=== PATIENT | female | born 1960 | race Caucasian/White ===

== ENCOUNTER 2019-09-24 13:06 | Outpatient (CLI) | payer BC, SELFPAY ==
[2019-09-24 13:38] LABS: Hematocrit 43.1 % (37.0-47.0); Hemoglobin 14.9 g/dL (12.0-15.0); Mean Corpuscular HGB Conc 34.6 g/dl (32-36); Mean Corpuscular Hemoglobin 31.6 pg (26-34); Mean Corpuscular Volume 91.3 fl (80-100); Mean Platelet Volume 10.2 fl (7.4-10.4); Platelet Count Result 244 k/mm3 (150-375); Red Blood Count 4.72 M/mm3 (4.2-5.4); Red Cell Distribution Width 12.6 % (11.5-14.5); White Blood Count 6.3 K/mm3 (4.5-10.0)
[2019-09-24 14:04] LABS: Alanine Aminotransferase 19 U/L (4-35); Albumin Level 4.6 g/dL (3.5-5.1); Alkaline Phosphatase 137 U/L (38-126); Amylase 78 U/L (30-110); Aspartate Amino Transferase 27 U/L (14-36); Bilirubin,Total 0.8 mg/dL (0.2-1.3); Blood Urea Nitrogen 13 mg/dL (7-17); Calcium 9.4 mg/dL (8.4-10.2); Carbon Dioxide 32 mmol/L (22-30); Chloride 103 mmol/L (98-107); Estimated Glomerular Filt Rate > 60; Glucose 99 mg/dL (65-105); Lipase 103 U/L (23-300); Sodium 138 mmol/L (137-145)
[2019-09-24 14:40] LABS: Hepatitis B Surface Antigen Negative (Negative)
[2019-09-24 14:57] LABS: Hepatitis C Virus Antibody Negative (Negative)
[2019-09-24 15:03] LABS: HAV RESULT Negative (Negative); Hepatitis B Core IgM Result Negative (Negative)
== END 2019-09-24 13:07 | disposition home or self-care (01) ==
PROVIDERS: PCP Family Medicine; Visit Provider Nurse Practitioner Family
DX: R10.10 Upper abdominal pain, unspecified (principal); R19.8 Other specified symptoms and signs involving the digestive system and abdomen; R14.0 Abdominal distension (gaseous)
CPT/HCPCS: 36415; 80053; 80074; 82150; 83690; 85027

== ENCOUNTER 2019-09-26 15:28 | Outpatient (CLI) | payer BC, SELFPAY ==
--- NOTE | ~2019-09-26 | US_ITS ---
US abdomen complete EXAMINATION: US Abdomen Complete INDICATION: Generalized abdominal pain PROCEDURE: Realtime High Resolution abdomen ultrasound. COMPARISON: No prior studies for comparison FINDINGS: Gallbladder within normal limits. No gallstones, pericholecystic fluid, gallbladder wall t hickening or biliary dilatation. Common bile duct measures 4.8 mm. Liver echotexture within normal limits without focal mass. Pancreas within normal limits. Pancreati c tail is obscured by bowel gas. Spleen is unremarkeable. Renal echotexture is within normal limits bilaterally without hydronephrosis, contour deforming mass or renal stone. Right kidney measures 9 cm . Left kidney measures 11.2 cm. Visualized aspects of the aorta and IVC are within normal limits. Portal vein is patent. No sonograph ic Rahman's sign indicated by the technologist. IMPRESSION: 1: Normal abdominal ultrasound. Reviewed, dictated and finalized at location A.
== END 2019-09-26 15:29 | disposition home or self-care (01) ==
LOC: ANHIMG 15:28
PROVIDERS: PCP Family Medicine; Visit Provider Nurse Practitioner Family
DX: R14.0 Abdominal distension (gaseous) (principal); R19.8 Other specified symptoms and signs involving the digestive system and abdomen
CPT/HCPCS: 76700

== ENCOUNTER 2019-10-18 10:51 | Outpatient (CLI) | payer BC, MEDICAID, SELFPAY ==
--- NOTE | ~2019-10-18 | CT_ITS ---
EXAMINATION: CT abdomen pelvis w con INDICATION: Mid abdominal pain and bloating TECHNIQUE: Computed tomographic images of the abdomen and pelvis were obtained after the administrati on of 100 cc of Omnipaque 350 intravenous contrast. The dose-length product (DLP) was 253.36 mGy-cm. Automated exposure control and iterative reconstruction technique were employed. COMPARISON: None available FINDINGS: The lung bases are clear. The heart size is normal. The liver is diffusely low in attenuati on when compared with the spleen, consistent with hepatic steatosis. The spleen, pancreas, gallbladde r, and adrenal glands are normal. There is a 1.4 cm lower pole calyceal stone of the right kidney. Th e left kidney is unremarkable. No pathologically enlarged abdominal or pelvic lymph nodes are identif ied. There is calcified atherosclerosis of the aorta and many of the other arteries. There is no free intraperitoneal gas or evidence of bowel obstruction. The appendix is normal. There is mild lumbar s pondylosis. IMPRESSION: 1. Nonobstructing right lower pole calyceal stone. 2. Diffuse hepatic steatosis. Reviewed, dictated and finalized at location A.
== END 2019-10-18 10:52 | disposition home or self-care (01) ==
LOC: ANHIMG 10:54
PROVIDERS: PCP Family Medicine; Visit Provider Nurse Practitioner Family
DX: R19.8 Other specified symptoms and signs involving the digestive system and abdomen (principal); N20.0 Calculus of kidney; K76.0 Fatty (change of) liver, not elsewhere classified
CPT/HCPCS: 74177; Q9967

== ENCOUNTER 2019-12-18 01:04 | Outpatient (CLI) | payer BC, MEDICAID, SELFPAY ==
[2019-12-18 19:19] LABS: SARS-CoV-2 RNA PCR Negative
== END 2019-12-18 01:05 | disposition home or self-care (01) ==
LOC: ANHCOVIDDT 01:04
PROVIDERS: PCP Family Medicine; Visit Provider Internal Medicine Gastroenterology
DX: Z01.812 Encounter for preprocedural laboratory examination (principal); Z11.59 Encounter for screening for other viral diseases
CPT/HCPCS: 87635; C9803; U0003

== ENCOUNTER 2019-12-20 01:23 | Day surgery (SDC) | payer BC, MEDICAID, SELFPAY ==
[2019-12-13 10:23] VITALS: BMI 23.4
--- NOTE | 2019-12-20 07:39 | WPDANESEPPF ---
Anes - Initial Pre Proc Eval Procedure: Operation Date: 12/20/19 09:00 Proposed Procedures p Esophagogastroduodenoscopy & Screening Colonoscopy - Nirmal Morillo MD Date/Time: 12/20/19 07:39 Surgeon: Nirmal Morillo MD Pre Op Diagnosis: Abdominal Pain/ Fam Hx Colon Ca Patient Data Age: 59 Gender: F Height: 1.6 m Weight: 60 kg Allergies Allergy/AdvReac Type Severity Reaction Status Date / Time codeine Allergy Unknown Nausea and Verified 12/13/19 10:45 Vomiting Home Medications Medication Instructions Recorded Confirmed Type cholecalciferol (vitamin D3) 25 25 mcg PO DAILY 11/25/19 12/13/19 History mcg (1,000 unit) tablet dicyclomine 10 mg capsule 10 mg PO BID #60 cap 11/25/19 12/13/19 Rx [id number]-Vt-kxfw-minerals 1 tablet PO DAILY 11/25/19 12/13/19 History albuterol sulfate 1 inh INHALATION QID PRN 12/13/19 12/13/19 History hydrocodone-acetaminophen [Vicodin 1 tablet PO BID PRN 12/13/19 12/13/19 History HP] Patient hx anesthesia problems: none Family hx anesthesia problems: none PMFSH Past Medical History Medical History (Updated 12/20/19 @ 07:40 by Brandon Wiseman MD) Abdominal pain Anemia Asthma Bloating Bronchitis COPD (chronic obstructive pulmonary disease) DM (diabetes mellitus) Early satiety Family history of colon cancer in mother Fatty liver History of angina Melena Pneumonia UTI (urinary tract infection) Surgical History Surgical History History of dilation and curettage x3 History of tonsillectomy and adenoidectomy Hx of tubal ligation Social History Social History Smoking packs per day: 1 Smoking cigarettes per day: 20.0 Smoking status: Current every day smoker Second hand tobacco smoke exposure: Yes Alcohol intake: never Gender identity (if verbalized by the patient): Female Anes - Eval Final PreProcedure Day of Procedure 12/20/19 07:39 Patient weight: normal Heart: regular rate and rhythm Lungs: clear to auscultation and normal air movement Airway: Mallampati scale class II Neurological: alert and oriented Last oral intake: >/= 8 hours ASA classification: III Emergent: no Anesthetic plan: proceed Anesthesia type and monitoring: general GIVS Informed Consent: The patient's anesthetic plan and its attendant risks and benefits were discussed with the patient/family/POA. Questions were solicited and answers provided to the satisfaction of the patient/family/POA.
[2019-12-20 08:17] VITALS: BP 129/65; PULSE 82; RESP 20; TEMP 36.4; O2SAT 100
[2019-12-20] MEDS: LACTATED RINGERS 1,000 ML 150 ML IV CONT (08:30)
--- NOTE | 2019-12-20 08:46 | WPDHPUPDATE1 ---
History and Physical Update Update Date/Time: 12/20/19 08:46 History and Physical has been reviewed, including an updated exam of the patient. There are NO changes in the patient's condition. Risks, benefits, and alternatives have been discussed and questions answered. Patient agrees to proceed with procedure.
[2019-12-20 09:22] VITALS: BP 92/53; PULSE 79; RESP 23; O2SAT 97
[2019-12-20 09:32] VITALS: BP 97/58; PULSE 75; RESP 22; O2SAT 97
[2019-12-20 09:42] VITALS: BP 118/70; PULSE 72; RESP 19; O2SAT 98
[2019-12-20 09:52] VITALS: BP 139/76; PULSE 73; RESP 17; O2SAT 100
== END 2019-12-20 10:19 | disposition home or self-care (01) ==
PROVIDERS: PCP Family Medicine; Visit Provider Internal Medicine Gastroenterology
PROC: 0DJ08ZZ Inspection of Upper Intestinal Tract, Via Natural or Artificial Opening Endoscopic (ICD-10-PCS; CPT 43235; principal; 2019-12-20 09:00)
DX: Z12.11 Encounter for screening for malignant neoplasm of colon (principal); D12.5 Benign neoplasm of sigmoid colon; K63.5 Polyp of colon; K64.8 Other hemorrhoids; K64.4 Residual hemorrhoidal skin tags; K25.9 Gastric ulcer, unspecified as acute or chronic, without hemorrhage or perforation; K29.80 Duodenitis without bleeding; K29.70 Gastritis, unspecified, without bleeding; B96.81 Helicobacter pylori [H. pylori] as the cause of diseases classified elsewhere; E11.9 Type 2 diabetes mellitus without complications; J44.9 Chronic obstructive pulmonary disease, unspecified; K76.0 Fatty (change of) liver, not elsewhere classified; Z80.0 Family history of malignant neoplasm of digestive organs; F17.210 Nicotine dependence, cigarettes, uncomplicated
CPT/HCPCS: 45385; 43239; 87081; 88305; 88342; J2704; J7120

== ENCOUNTER 2020-12-07 09:43 | Emergency (ER) | payer BC, MEDICAID, SELFPAY ==
--- NOTE | ~2020-12-07 | XR_ITS ---
EXAMINATION: XR chest 2V DATE: 12/07/2020 10:29 INDICATION: Right-sided rib pain TECHNIQUE: Frontal and lateral views of the chest are obtained COMPARISON: 07/26/2017 FINDINGS: The lungs are free of acute opacities. A calcified nodule of the right upper lobe is consis tent with old granulomatous disease. There is no pleural effusion or pneumothorax. The cardiomediasti nal silhouette is normal. There is moderate thoracic spondylosis. IMPRESSION: 1. No acute cardiopulmonary abnormality. Reviewed, dictated and finalized at location B.
[2020-12-07 09:54] VITALS: BP 131/63; PULSE 72; RESP 18; TEMP 36.3; O2SAT 100
--- NOTE | 2020-12-07 10:16 | ED.GENADULT ---
HPI - General Adult General Chief complaint: Unspecified Stated complaint: Rib Pain Source: patient and RN notes reviewed Limitations: no limitations History of Present Illness HPI narrative: The patient, is a current smoker/nondrinker, presents with rib pain. Patient states couple days ago she had the atraumatic onset of point tender, right rib pain while reaching over and lifting awkward, heavy object. She complains of mild pain is worse with motion or deep breathing. No fever, cough, shortness of breath, radiating pain, precordial CP Related Data Allergies Allergy/AdvReac Type Severity Reaction Status Date / Time codeine Allergy Unknown Nausea and Verified 12/07/20 10:05 Vomiting Review of Systems Review of Systems: Narrative: General/Constitutional: No weight loss,fever Eyes: N0: Redness,discharge Ears/Nose/Throat: No: Epistaxis,ear discharge Respiratory: Denies: Hemoptysis Gastrointestinal: No Vomiting, Bleeding-rectal Skin: No Lumps, eruption Neurologic: No Focal Weakness,Sz Hematologic: Denies: Petechiae/Purpura Psychiatric: No: Suicida ideationl All Other Systems: Reviewed and Negative Eyes: Eyes: Reports as per [facility] Past Medical History Medical History (Updated 12/07/20 @ 11:00 by Sean Herrera MD) Abdominal pain Adenomatous colon polyp Anemia Asthma Bloating Bronchitis COPD (chronic obstructive pulmonary disease) DM (diabetes mellitus) Early satiety Family history of colon cancer in mother Fatty liver Helicobacter pylori (H. pylori) History of angina Irritable bowel syndrome with constipation Melena Pneumonia Tobacco abuse UTI (urinary tract infection) Surgical History Surgical History History of dilation and curettage x3 History of tonsillectomy and adenoidectomy Hx of tubal ligation Family History Family History Mother Hypertension Carcinoma of colon Sibling Family history of lung cancer Social History Social History Smoking packs per day: 1 Smoking cigarettes per day: 20.0 Smoking status: Current some day smoker Second hand tobacco smoke exposure: Yes Alcohol intake: never Gender identity (if verbalized by the patient): Female Comments At time of signature, agree with nursing past medical, surgical, social and family history. There is no relevant family history pertinent to the presenting complaint Exam Narrative: Exam Narrative: General Appearance: No distress,, Conjunctiva clear Ears: External ear normal Nose: Normal nose Mouth/Throat: Normal appearing, Normal lips,: Supple Respiratory: Airway patent, No respiratory distress, increased AP diameter, point tender right ribs anterior axillary line T5-7, mild diffuse decreased BS Cardiovascular: RRR Musculoskeletal: Full ROM Skin: Warm, Dry Neurological: A&O x3, CN II-X intact Psychiatric: Normal mood, Normal affect Course Course Emergency Course: Films visualized, interpreted by radiologist, agree, normal see report Vital Signs Vital signs: Vital Signs Temperature 97.3 F L 12/07/20 09:54 Pulse Rate 72 12/07/20 09:54 Respiratory Rate 18 12/07/20 09:54 Blood Pressure 131/63 12/07/20 09:54 Pulse Oximetry 100 12/07/20 09:54 Temperature 97.3 F L 12/07/20 09:54 Pulse Rate 72 12/07/20 09:54 Respiratory Rate 18 12/07/20 09:54 Blood Pressure 131/63 12/07/20 09:54 Pulse Oximetry 100 12/07/20 09:54 Medical Decision Making Vital Signs Vital Signs: Vital Signs Temperature 97.3 F L 12/07/20 09:54 Pulse Rate 72 12/07/20 09:54 Respiratory Rate 18 12/07/20 09:54 Blood Pressure 131/63 12/07/20 09:54 Pulse Oximetry 100 12/07/20 09:54 Temperature 97.3 F L 12/07/20 09:54 Pulse Rate 72 12/07/20 09:54 Respiratory Rate 18 12/07/20 09:54 Blood P
== END 2020-12-07 11:05 | disposition home or self-care (01) ==
PROVIDERS: Emergency Provider Emergency Medicine; PCP Family Medicine
DX: R07.81 Pleurodynia (principal); F17.210 Nicotine dependence, cigarettes, uncomplicated; J45.909 Unspecified asthma, uncomplicated; J44.9 Chronic obstructive pulmonary disease, unspecified; E11.9 Type 2 diabetes mellitus without complications; K76.0 Fatty (change of) liver, not elsewhere classified; I20.9 Angina pectoris, unspecified
CPT/HCPCS: 71046; 99213; G0463

== ENCOUNTER → 2021-07-06 02:24 | Outpatient (CLI) | payer BC, MEDICAID, SELFPAY ==
[2021-07-06 16:44] LABS: SARS-CoV-2 RNA PCR Negative
== END ==
PROVIDERS: PCP Family Medicine; Visit Provider Physician Assistant Medical
DX: Z20.822 Contact with and (suspected) exposure to COVID-19 (principal)
CPT/HCPCS: C9803; U0003; U0005

== ENCOUNTER 2021-07-26 09:21 | Outpatient (CLI) | payer BC, MEDICAID, SELFPAY ==
--- NOTE | ~2021-07-26 | XR_ITS ---
EXAMINATION: XR knee LT 2V DATE: 07/26/2021 09:38 INDICATION: Left knee pain. Injury. TECHNIQUE: 2 views of left knee standing were obtained. COMPARISON: None. FINDINGS: Bone alignment is normal. No fracture. There is mild tricompartmental osteoarthritis charac terized by tiny osteophytes. No joint space narrowing. There is a small knee joint effusion. IMPRESSION: 1. Mild left knee osteoarthritis. 2. Small left knee joint effusion. Reviewed, dictated and finalized at location A. 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
--- NOTE | ~2021-07-26 | XR_ITS ---
EXAMINATION: XR chest 2V DATE: 07/26/2021 09:38 INDICATION: Cough, unspecified. TECHNIQUE: Frontal and lateral views of the chest were obtained. COMPARISON: Chest 2 views 12/07/2020 FINDINGS: There is mild scarring at right lung apex. A calcified right lung nodule is consistent with old granulomatous disease. No pleural effusion or pneumothorax. The heart size is normal. IMPRESSION: 1. Stable mild scarring at right lung apex. Reviewed, dictated and finalized at location A. 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
== END 2021-07-26 09:22 | disposition home or self-care (01) ==
PROVIDERS: PCP Family Medicine; Visit Provider Nurse Practitioner Family
DX: M25.562 Pain in left knee (principal); R05.9 Cough, unspecified; R91.8 Other nonspecific abnormal finding of lung field; M17.12 Unilateral primary osteoarthritis, left knee; M25.462 Effusion, left knee
CPT/HCPCS: 71046; 73560

== ENCOUNTER 2021-10-15 11:32 | Outpatient (CLI) | payer BC, MEDICAID, SELFPAY ==
--- NOTE | ~2021-10-15 | XR_ITS ---
EXAMINATION: XR abdomen/kub 1V DATE: 10/15/2021 11:55 INDICATION: Calculus of kidney. TECHNIQUE: A supine view of the abdomen on 2 radiographs was obtained. COMPARISON: CT dated 10/18/2019 FINDINGS: The previously seen 1.4 cm stone at a lower pole calyx of the right kidney is no longer visualized co nsistent with history of prior lithotripsy. Costochondral calcifications project over the diaphragm. No new urolithiasis appreciated. No dilated loops of bowel to suggest obstruction. Lung bases are sandee ar. Heart size is normal. Bones are unremarkable. IMPRESSION: 1. Normal bowel gas pattern. No urolithiasis. Reviewed, dictated and finalized at location B.
== END 2021-10-15 11:33 | disposition home or self-care (01) ==
LOC: ANHIMG 11:39
PROVIDERS: PCP Family Medicine; Visit Provider Nurse Practitioner Family
DX: N20.0 Calculus of kidney (principal)
CPT/HCPCS: 74018

== ENCOUNTER 2021-10-25 12:42 | Outpatient (CLI) | payer BC, OTHER, MEDICAID, SELFPAY ==
--- NOTE | ~2021-10-25 | CT_ITS ---
EXAMINATION: CT diagnostic chest wo con DATE: 10/25/2021 13:04 INDICATION: Tobacco use TECHNIQUE: Computed tomography (CT) of the chest was performed without intravenous contrast. Automate d exposure control and iterative reconstruction technique were employed. Exam dose: 65.46 mGy-cm tot al exam DLP. COMPARISON: 07/26/2021 PA and lateral chest 04/05/2019 CT thoracic lumbar spine FINDINGS: Stable fibrocalcific scarring right lung apex, stable since 04/05/2019 No pulmonary infiltrate or consolidation or pulmonary mass lesion. There is aortic and great vessel and coronary artery calcification. No thoracic aortic aneurysm. Norm al heart size. No pericardial effusion. No hilar or mediastinal mass lesion or lymphadenopathy. Normal morphology of the adrenal glands. There is chronic concavity of the superior vertebral endplate of T11, stable since 04/05/2019. IMPRESSION: Chronic stable right apical fibrocalcific scarring, stable since 04/05/2019 Chronic mild superior vertebral endplate compression fracture of T11, stable since 04/05/2019 Reviewed, dictated and finalized at Location A. Reviewed, dictated and finalized at location A. IMPRESSION: Chronic stable right apical fibrocalcific scarring, stable since 06/05/2018 Chronic mild superior vertebral endplate compression fracture of T11, stable si nce 04/05/2019
== END 2021-10-25 12:43 | disposition home or self-care (01) ==
PROVIDERS: PCP Family Medicine; Visit Provider Nurse Practitioner Family
DX: Z13.6 Encounter for screening for cardiovascular disorders (principal); I25.10 Atherosclerotic heart disease of native coronary artery without angina pectoris; M48.54XA Collapsed vertebra, not elsewhere classified, thoracic region, initial encounter for fracture; Z72.0 Tobacco use
CPT/HCPCS: 71250

== ENCOUNTER 2021-11-08 10:43 | Outpatient (CLI) | payer BC, MEDICAID, SELFPAY ==
--- NOTE | ~2021-11-08 | MM_ITS ---
EXAMINATION: MM screening mitchel BI w rupa HISTORY: Screening mammogram TECHNIQUE: Craniocaudal and mediolateral oblique 3-D tomosynthesis images were obtained and synthetic 2-D images were generated. CAD analysis was submitted and interpreted. COMPARISON: 09/26/2017, 09/07/2013 bilateral screening mammogram examinations BREAST PARENCHYMAL COMPOSITION: There are scattered areas of fibroglandular density. FINDINGS: There is no evidence of suspicious mass, calcification, or architectural distortion to sugg est malignancy in either breast. There has been no suspicious interval change. IMPRESSION: 1. No mammographic evidence of malignancy. 2. Recommend routine screening mammography in one year. BI-RADS Category 1: Negative Reviewed, dictated and finalized at location A.
[2021-11-08 11:11] LABS: Hematocrit 47.4 % (37.0-47.0); Hemoglobin 16.1 g/dL (12.0-15.0); Mean Corpuscular Hemoglobin 31.8 pg (26-34); Mean Corpuscular Volume 93.5 fl (80-100); Mean Platelet Volume 10.2 fl (7.4-10.4); Platelet Count Result 251 k/mm3 (150-375); Red Blood Count 5.07 M/mm3 (4.2-5.4); Red Cell Distribution Width 13.4 % (11.5-14.5); White Blood Count 8.5 K/mm3 (4.5-10.0)
[2021-11-08 11:22] LABS: Alanine Aminotransferase 21 U/L (6-35); Albumin Level 4.9 g/dL (3.5-5.1); Alkaline Phosphatase 135 U/L (38-126); Anion Gap 4 mmol/L (8-16); Aspartate Amino Transferase 22 U/L (14-36); Bilirubin,Total 1.5 mg/dL (0.2-1.3); Blood Urea Nitrogen 12 mg/dL (7-17); Calcium 9.3 mg/dL (8.4-10.2); Carbon Dioxide 33 mmol/L (22-30); Chloride 100 mmol/L (98-107); Cholesterol 220 mg/dL (0-200); Estimated Glomerular Filt Rate > 60; Glucose 187 mg/dL (65-110); HDL Direct 52 mg/dL; Sodium 137 mmol/L (137-145); Triglycerides 70 mg/dL (<150)
[2021-11-08 11:32] LABS: LDL Cholesterol Direct 136 mg/dL
[2021-11-14 12:10] LABS: Estrogen 148.1 pg/mL
== END 2021-11-08 10:44 | disposition home or self-care (01) ==
PROVIDERS: PCP Family Medicine; Visit Provider Nurse Practitioner Family
DX: R53.83 Other fatigue (principal); Z13.29 Encounter for screening for other suspected endocrine disorder; Z13.220 Encounter for screening for lipoid disorders; N20.0 Calculus of kidney; K76.0 Fatty (change of) liver, not elsewhere classified; Z12.31 Encounter for screening mammogram for malignant neoplasm of breast
CPT/HCPCS: 36415; 77063; 77067; 80053; 80061; 82672; 84443; 85027

== ENCOUNTER 2021-11-18 07:47 | Outpatient (CLI) | payer BC, MEDICAID, SELFPAY ==
--- NOTE | ~2021-11-18 | US_ITS ---
US abdomen complete DATE: 11/18/2021 08:49 INDICATION: Fatty change of the liver TECHNIQUE: Real-time imaging of the abdomen, Doppler analysis COMPARISON: 10/15/2021 KUB 10/18/2019 CT abdomen pelvis FINDINGS: There is hepatic steatosis. No hepatic space-occupying mass lesion is detected. Normal hepa topedal portal venous flow direction. No gallstones or gallbladder wall thickening or pericholecystic fluid. Negative sonographic Rahman's sign. The common bile duct measures 2.6 mm, normal. The pancreas is largely obscured by bowel gas. Right kidney measures 10.6 cm length, left kidney 11.2 cm. No renal mass lesion or hydronephrosis is evident. Normal splenic size. Normal caliber of the abdominal aorta. The inferior vena cava is unremarkable. IMPRESSION: Hepatic steatosis The pancreas is largely obscured Reviewed, dictated and finalized at Location A. Reviewed, dictated and finalized at location B.
== END 2021-11-18 07:48 | disposition home or self-care (01) ==
LOC: ANHIMG 07:48
PROVIDERS: PCP Family Medicine; Visit Provider Nurse Practitioner Family
DX: K76.0 Fatty (change of) liver, not elsewhere classified (principal)
CPT/HCPCS: 76700

== ENCOUNTER 2021-12-16 11:33 | Outpatient (CLI) | payer BC, MEDICAID, SELFPAY ==
[2021-12-16 12:47] LABS: Iron 94 ug/dL (37-170)
[2021-12-16 12:56] LABS: Percent Iron Saturation 25 % (20-50)
[2021-12-16 13:19] LABS: Hepatitis B Surface Antigen Negative (Negative)
[2021-12-16 13:25] LABS: HAV RESULT Negative (Negative); Hepatitis B Core IgM Result Negative (Negative)
[2021-12-16 13:37] LABS: Hepatitis C Virus Antibody Negative (Negative)
[2021-12-19 03:14] LABS: Ceruloplasmin 31 mg/dL (18-53)
[2021-12-21 10:33] LABS: Mitochondrial (M2) Ab (IgG) <=20.0 U (<=20.0)
[2021-12-22 21:10] LABS: Tissue Transglutaminase IgA Ab <1.0 U/mL (<15.0)
[2021-12-22 22:31] LABS: Tissue Transglutaminase IgG Ab 1.3 U/mL (<15.0)
== END 2021-12-16 11:34 | disposition home or self-care (01) ==
LOC: ANHLAB 11:36
PROVIDERS: PCP Family Medicine; Visit Provider Internal Medicine Gastroenterology
DX: K76.0 Fatty (change of) liver, not elsewhere classified (principal); R74.8 Abnormal levels of other serum enzymes
CPT/HCPCS: 36415; 80074; 82104; 82390; 82728; 83516; 83520; 83540; 83550; 86038

== ENCOUNTER 2022-04-01 15:30 | Outpatient (CLI) | payer BC, MEDICAID, SELFPAY ==
--- NOTE | ~2022-04-01 | CT_ITS ---
EXAMINATION: CT abdomen pelvis w con DATE: 04/01/2022 15:55 INDICATION: Abdominal pain for 2 years TECHNIQUE: Computed tomography (CT) of the abdomen and pelvis was performed with 100 CC Omnipaque 350 intravenous contrast. Automated exposure control and iterative reconstruction technique were employe d. Exam dose: 252.70 mGy-cm total exam DLP. COMPARISON: 11/18/2021 complete abdominal ultrasound examination 10/18/2019 CT abdomen pelvis FINDINGS: The lung bases are clear. Normal heart size. No pericardial or pleural effusion. The liver, gallbladder, bile ducts, spleen, pancreas, pancreatic duct, and adrenal glands and kidneys are unremarkable. No urinary tract calculus or hydroureteronephrosis. The uterus, adnexal areas and urinary bladder are unremarkable. There is atherosclerotic calcification of the abdominal aorta and iliac arteries but no abdominal aor tic aneurysm. No intraperitoneal or retroperitoneal or pelvic mass lesion or adenopathy or ascites is detected. Normal appendix. No bowel obstruction or intraperitoneal free air. Mild T11 compression fracture deformity, which appears chronic. IMPRESSION: Normal appendix Mild T11 chronic compression fracture deformity Reviewed, dictated and finalized at Location A. Reviewed, dictated and finalized at location A. 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
[2022-04-01 15:50] LABS: Estimated Glomerular Filt Rate > 60
== END 2022-04-01 15:31 | disposition home or self-care (01) ==
LOC: ANHIMG 15:31
PROVIDERS: PCP Family Medicine; Visit Provider Nurse Practitioner Family
DX: R10.9 Unspecified abdominal pain (principal); M48.54XA Collapsed vertebra, not elsewhere classified, thoracic region, initial encounter for fracture
CPT/HCPCS: 74177; Q9967

== ENCOUNTER 2022-12-20 11:40 | Outpatient (CLI) | payer BC, MEDICAID, SELFPAY ==
--- NOTE | ~2022-12-20 | XR_ITS ---
Clinical Indication: Bronchitis PA and lateral views of the chest: Comparison: 07/26/2021 Findings: Stable calcified right apical pulmonary nodule. The lungs are otherwise clear, without evid ence of focal consolidation or pleural effusion. Cardiomediastinal silhouette is within normal limit s. Bones and soft tissues are unremarkable. Impression: No acute abnormality. Stable calcified right apical granuloma. Reviewed, dictated and finalized at location . Impression: No acute abnormality. Stable calcified right apical granuloma.
== END 2022-12-20 11:41 | disposition home or self-care (01) ==
PROVIDERS: PCP Family Medicine; Visit Provider Physician Assistant Medical
DX: J20.9 Acute bronchitis, unspecified (principal)
CPT/HCPCS: 71046

== ENCOUNTER 2023-05-02 13:41 | Outpatient (CLI) | payer BC, OTHER, MEDICAID, SELFPAY ==
--- NOTE | ~2023-05-02 | CT_ITS ---
CT Scan of the Chest without Contrast: Clinical Indication: Nonspecific abnormal finding of lung field, pulmonary nodules Technique: Contiguous sections were acquired throughout the chest without intravenous contrast. Dose reduction technique was used on this scan by utilizing automated exposure control and iterative recon struction technique. The dose-length product (DLP) was 67.68 mGy-cm. COMPARISON: 10/25/2021 Findings: There is no evidence of any significant mediastinal, hilar or axillary lymphadenopathy. There are ath erosclerotic calcifications of the aorta and coronary arteries. There is no evidence of pleural or pericardial effusion. Stable right apical nodule present, probably nodular scarring. Additional densely calcified right api gabo nodule is also unchanged. Images through the upper abdomen reveal no abnormalities. Stable mild compression deformity of T11. Impression: Right apical scarring and nodularity, stable from prior exam. Stable mild compression deformity of T11. Reviewed, dictated and finalized at [facility]. 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 Stable mild compression deformity of T11.
== END 2023-05-02 13:42 | disposition home or self-care (01) ==
LOC: ANHIMG 13:43
PROVIDERS: PCP Family Medicine; Visit Provider Nurse Practitioner Family
DX: R91.8 Other nonspecific abnormal finding of lung field (principal)
CPT/HCPCS: 71250

== ENCOUNTER 2023-05-11 09:49 | Outpatient (CLI) | payer BC, MEDICAID, SELFPAY ==
--- NOTE | 2023-05-16 14:30 | WPDPFTINT ---
PFT Procedure Performed PFT Procedure Performed Plethysmography (Lung Vol) Diffusing Cap (DLCO) Flow Vol Loop Spirometry w/o Bronchodil PFT Interpretation DOS: 05/11/2023 REQUESTING: MAHIN Tena REASON FOR TESTING: chronic cough PULMONARY FUNCTION TESTS Repeatability of FEV1 spirometry maneuver is Grade A. Spirometry: FEV1 is 1.73 L, 74%, and low end of normal. FVC is 2.51 L, 85%, normal. FEV1/FVC is 69%, normal. FEF 25-75 is 1 L, 48%, low end of normal. No bronchodilator was administered. Lung volumes: Total lung capacity 5.03 L, 103% predicted, normal. Residual volume is 2.5 2 L, 126%, normal. RV /TLC is 50%, within the normal range. Airway resistance is 3.03, 218%, elevated. Diffusion: DLCO is 12.0, 57%, mildly decreased. DLCO/VA is 3.26, 73%, low end of normal. Flow volume loop: The expiratory loop is normal. The inspiratory loop shows attenuation in the 2nd half of the loop. This is a nonspecific finding. IMPRESSION: Normal spirometry, air trapping, mild diffusion impairment that corrects with alveolar volume. No bronchodilator administered. No prior studies for comparison. Eneida Ryan MD
== END 2023-05-11 09:50 | disposition home or self-care (01) ==
LOC: ANHPFT 09:51
PROVIDERS: PCP Family Medicine; Visit Provider Nurse Practitioner Family
DX: J40 Bronchitis, not specified as acute or chronic (principal)
CPT/HCPCS: 94375; 94726; 94729

== ENCOUNTER 2023-06-05 08:41 | Emergency (ER) | payer BC, OTHER, MEDICAID, SELFPAY ==
--- NOTE | ~2023-06-05 | US_ITS ---
US abdomen limited DATE: 06/05/2023 11:47 INDICATION: Persistent right upper quadrant abdominal pain TECHNIQUE: Real-time imaging of liver, pancreas, gallbladder COMPARISON: 06/05/2023 CT abdomen pelvis FINDINGS: No hepatic or pancreatic space-occupying mass lesion. Normal hepatopedal portal venous flow direction. No gallstones or gallbladder wall thickening or abnormal pericholecystic fluid collection is detected . Negative sonographic Rahman's sign. The common bile duct measures 3.5 mm, normal. IMPRESSION: No significant abnormality Reviewed, dictated and finalized at Location A. Reviewed, dictated and finalized at location B. 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
--- NOTE | ~2023-06-05 | CT_ITS ---
EXAMINATION: CT abdomen pelvis w con DATE: 06/05/2023 11:02 INDICATION: Right upper quadrant abdominal pain for 4 days. Bloating. Diminished appetite. TECHNIQUE: Computed tomography (CT) of the abdomen and pelvis was performed with 100 CC Omnipaque 350 intravenous contrast. Automated exposure control and iterative reconstruction technique were employe d. Exam dose: 248.63 mGy-cm total exam DLP. COMPARISON: None. FINDINGS: The lung bases are clear. Normal heart size. No pericardial or pleural effusion. There is diffuse hepatic steatosis. No hepatic space-occupying mass lesion is evident. The gallbladde r appears normal. No gallbladder wall thickening or pericholecystic fluid or fat stranding is noted. Ultrasound is more sensitive for detection of cholelithiasis. No bile duct dilatation. No pancreatic mass lesion or calcification or pancreatic duct dilatation. Splenic size is within normal range. Normal morphology of the adrenal glands. Probable very small cyst of the upper pole of the right kidney, too small to definitively characteriz e. The kidneys are otherwise unremarkable. No urinary tract calculus or hydroureteronephrosis. There is atherosclerotic calcification but normal caliber of the abdominal aorta and iliac arteries. No intraperitoneal or retroperitoneal or pelvic mass lesion or adenopathy or ascites is noted. The uterus, adnexal areas and urinary bladder are unremarkable. Normal appendix. There is a prominent of fecal material in the rectosigmoid area. No bowel obstructio n or intraperitoneal free air. Approximately 11 x 16 mm right periumbilical fat-containing hernia. Chronic mild T11 anterior wedge compression fracture deformity. No suspicious osteolytic or osteoblas tic lesions are noted. IMPRESSION: Diffuse hepatic steatosis The gallbladder appears unremarkable on CT examination but ultrasound would be more sensitive for det ection of cholelithiasis. Normal appendix Reviewed, dictated and finalized at [facility]. Reviewed, dictated and finalized at [facility]. L[facility] CLEANER IMPRESSION: Diffuse hepatic steatosis The gallbladder appears unremarkable on CT examination but ultrasound would be more sensitive for detection of cholelithiasis. Normal appendix
[2023-06-05 08:48] VITALS: BP 143/68; PULSE 87; RESP 16; TEMP 36.4; O2SAT 100
[2023-06-05 09:06] LABS: Basophils Absolute Auto 0.1 K/mm3 (0.0-0.1); Basophils Percent Auto 1.2 % (0.2-1.2); Eosinophils Absolute Auto 0.2 K/mm3 (0-0.3); Hematocrit 49.8 % (37.0-47.0); Immature Granulocyte Absolute 0.02 K/mm3 (0.00-0.031); Immature Granulocyte Percent A 0.3 % (0-0.5); Lymphocytes Absolute Auto 1.64 K/mm3 (0.9-3.2); Lymphocytes Percent Auto 21.6 % (18.3-44.2); Mean Corpuscular HGB Conc 34.1 g/dl (32-36); Mean Corpuscular Hemoglobin 31.4 pg (26-34); Mean Corpuscular Volume 92.1 fl (80-100); Mean Platelet Volume 10.1 fl (7.4-10.4); Monocytes Absolute Auto 0.5 K/mm3 (0.1-0.6); Monocytes Percent Auto 7.1 % (2.6-8.5); Neutrophils Absolute Auto 5.1 K/mm3 (1.3-6.7); Neutrophils Percent Auto 66.8 % (45.5-73.1); Platelet Count Result 244 k/mm3 (150-375); Red Blood Count 5.41 M/mm3 (4.2-5.4); Red Cell Distribution Width 12.9 % (11.5-14.5); White Blood Count 7.6 K/mm3 (4.5-10.0)
[2023-06-05 09:16] LABS: Alanine Aminotransferase 16 U/L (6-35); Alkaline Phosphatase 133 U/L (38-126); Anion Gap 8 mmol/L (8-16); Aspartate Amino Transferase 23 U/L (14-36); Bilirubin,Total 1.8 mg/dL (0.2-1.3); Blood Urea Nitrogen 17 mg/dL (7-17); Calcium 9.7 mg/dL (8.4-10.2); Carbon Dioxide 30 mmol/L (22-30); Chloride 101 mmol/L (98-107); Estimated CRCL calculation 59 ml/min; Estimated Glomerular Filt Rate > 60; Glucose 149 mg/dL (65-110); Lipase 93 U/L (23-300); Potassium 4.1 mmol/L (3.4-5.0); Sodium 139 mmol/L (137-145)
[2023-06-05 10:17] LABS: Appearance Urine Cloudy (Clear); Bacteria Urine None Seen /hpf; Bilirubin Urine Negative (Negative); Blood Urine Negative (Negative); Color Urine Yellow (Yellow); Glucose Urine UA Negative (Negative); Ketones Urine Trace mg/dL (Negative); Leukocyte Esterase Ur Negative LEU/UL (Negative); Nitrate Urine Negative (Negative); Non Pathogenic Casts 0-2; Protein Urine Trace mg/dL (Negative); RBC Urine 0-2 /hpf (0-2); Specific Grav Ur 1.024 (1.001-1.035); Squamous Epithelial Cell Urine None seen /hpf (Few); WBC Urine 0-5 /hpf
[2023-06-05 10:23] LABS: Add Urine Microscopic? YES
--- NOTE | 2023-06-05 10:33 | ED.GENADULT ---
HPI - General Adult General Chief complaint: Abdominal Pain Stated complaint: gallbladder pain Time Seen by Provider: 06/05/23 09:38 Source: patient Mode of arrival: ambulatory Limitations: no limitations History of Present Illness HPI narrative: This is a 63-year-old female who presents to the ED with chief complaint of right upper quadrant pain beginning 4 days ago. Reports that is intermittent in severity, currently an 8/10. Reports it is located strictly in the right upper quadrant. She was doing research and wants to make sure that is not gallbladder. She reports feeling nauseous in waves and has increased nausea when she eats. Denies vomiting. Denies any problems with bowel movements or urination. Denies fevers, chills, chest pain, shortness of breath or cough. Additionally states she was diagnosed with a stomach ulcer after having EGD last year has been on a ?ulcer medicine ever since. ? Related Data Allergies Allergy/AdvReac Type Severity Reaction Status Date / Time codeine Allergy Unknown Nausea and Verified 06/05/23 09:52 Vomiting Review of Systems Review of Systems: All systems as dictated in [facility] Past Medical History Medical History Abdominal pain Acute pharyngitis, unspecified (02/28/18) Adenomatous colon polyp Anemia Arm numbness left Asthma Bloating BMI 23.0-23.9, adult BMI 24.0-24.9, adult BMI 25.0-25.9,adult Bronchitis COPD (chronic obstructive pulmonary disease) DM (diabetes mellitus) Early satiety Elevated blood pressure reading Elevated liver enzymes Encounter for gynecological examination (general) (routine) without abnormal findings Encounter for screening for lipoid disorders Encounter for screening for malignant neoplasm of colon Encounter for screening for respiratory tuberculosis (11/06/17) Family history of colon cancer in mother Fatty liver Helicobacter pylori (H. pylori) History of angina Irritable bowel syndrome with constipation Lung nodule Melena Mixed hyperlipidemia Neck pain Nicotine dependence, unspecified, uncomplicated Other abnormal glucose Peptic ulcer Pneumonia Prediabetes Routine physical examination Screening for malignant neoplasm of breast Screening for thyroid disorder Strep pharyngitis Tobacco abuse Tobacco use UTI (urinary tract infection) Surgical History Surgical History H/O colonoscopy History of dilation and curettage x3 History of tonsillectomy and adenoidectomy Hx of tubal ligation Family History Family History Mother Hypertension Carcinoma of colon Sibling Family history of lung cancer Diabetes mellitus Heart disease Father Sibling No problems noted. 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 HEAD: Normocephalic, atraumatic. EYES: PERRLA and EOMI. ENT: Nares clear, no rhinorrhea or epistaxis. Mucous membranes moist. Oropharynx without tonsillar hypertrophy exudate or other lesions. NECK: Supple. No adenopathy or masses. CHEST: No respiratory distress. Clear to auscultation. No wheezes rales or rhonchi HEART: Regular rate and rhythm. No murmur heard. Normal peripheral pulses. ABDOMEN: Soft, nontender, nondistended, no
[2023-06-05] MEDS: MORPHINE SULFATE (*CRX) 4 MG/ML INJ IV PUSH (10:52)
[2023-06-05] MEDS: ONDANSETRON INJ 4 MG/2 ML VIAL IV PUSH (10:52)
== END 2023-06-05 12:40 | disposition home or self-care (01) ==
PROVIDERS: Emergency Medicine; Emergency Provider Physician Assistant; PCP Family Medicine
DX: R10.11 Right upper quadrant pain (principal); J44.9 Chronic obstructive pulmonary disease, unspecified; E11.9 Type 2 diabetes mellitus without complications; E78.2 Mixed hyperlipidemia; K58.1 Irritable bowel syndrome with constipation; F17.210 Nicotine dependence, cigarettes, uncomplicated; Z87.11 Personal history of peptic ulcer disease; Z87.01 Personal history of pneumonia (recurrent); Z87.440 Personal history of urinary (tract) infections; Z86.010 Personal history of colon polyps; Z86.2 Personal history of diseases of the blood and blood-forming organs and certain disorders involving the immune mechanism
CPT/HCPCS: 36415; 74177; 76705; 80053; 81001; 83690; 85025; 96374; 96375; 99284; J2270; J2405; Q9967

== ENCOUNTER 2023-06-07 09:01 | Outpatient (CLI) | payer BC, MEDICAID, SELFPAY ==
--- NOTE | ~2023-06-07 | XR_ITS ---
XR ribs BI 3V w CXR 2V DATE: 06/07/2023 09:29 INDICATION: Right anterior rib pain TECHNIQUE: PA and lateral chest. 3 views of right ribs. 3 views of left ribs. COMPARISON: 05/02/2023 CT chest 04/27/2023 2 view chest 07/26/2021, 12/07/2020, 07/26/2017 2 view chest radiographic examinations FINDINGS: Benign calcification, right apical area and chronic right apical scarring. Bilateral hyperi nflation. No pulmonary infiltrate or consolidation, pleural effusion or pulmonary vascular congestion or pneumothorax is detected. Normal heart size. Aortic arch calcification. No hilar or mediastinal enlargement. There is osteopenia. IMPRESSION: No active cardiac pulmonary disease or significant change since 07/26/2017 Stable right apical scarring and calcification since 07/26/2017 Reviewed, dictated and finalized at [facility]. EXPERT IMPRESSION: No active cardiac pulmonary disease or significant change since 07/26 Stable right apical scarring and calcification since 07/26/2017
== END 2023-06-07 09:02 | disposition home or self-care (01) ==
PROVIDERS: PCP Family Medicine; Visit Provider Physician Assistant Medical
DX: R07.81 Pleurodynia (principal); J98.4 Other disorders of lung
CPT/HCPCS: 71046; 71110

== ENCOUNTER 2023-06-12 07:25 | Outpatient (CLI) | payer BC, MEDICAID, SELFPAY ==
--- NOTE | ~2023-06-12 | NM_ITS ---
EXAMINATION: NM hepatobiliary wo pharm DATE: 06/12/2023 10:06 INDICATION: Right upper quadrant abdominal pain COMPARISON: 06/05/2023 TECHNIQUE: 5.2 mCi Tc-99m mebrofenin (Choletec) was administered intravenously. Scintigraphic images of the abdomen were obtained for one hour. At the 1 hour time point, the patient drank 8 oz Ensure, and imaging was continued for 60 minutes. Gallbladder ejection fraction was calculated by the technol ogist. FINDINGS: There is normal clearance of radiotracer from the blood pool. There is homogeneous tracer u ptake by the liver. Activity progresses to the bowel and gallbladder. The gallbladder ejection fract ion (GBEF) is 23%. Note that with this technique, normal GBEF >= 33%. IMPRESSION: 1. Decreased gallbladder ejection fraction consistent with gallbladder dysfunction or chronic cholec ystitis in the appropriate clinical setting. Reviewed, dictated and finalized at location [facility]. BUSTER IMPRESSION: 1. Decreased gallbladder ejection fraction consistent with gallbladder dysfunc tion or chronic cholecystitis in the appropriate clinical setting.
== END 2023-06-12 07:26 | disposition home or self-care (01) ==
PROVIDERS: PCP Family Medicine; Visit Provider Physician Assistant Medical
DX: R10.11 Right upper quadrant pain (principal)
CPT/HCPCS: 78226; A9537

== ENCOUNTER 2023-06-19 13:38 | Outpatient (CLI) | payer BC, MEDICAID, SELFPAY ==
--- NOTE | 2023-06-19 13:43 | ECG_ITS ---
Measurements Intervals [place] Rate: 93 P: 72 MN: 131 QRS: -12 QRSD: 109 T: 53 QT: 370 QTc: 462 Interpretive Statements SINUS RHYTHM INCOMPLETE RIGHT BUNDLE BRANCH BLOCK BASELINE ARTIFACT- I, II, III, AVR, AVL, AVF, V1-V3 BORDERLINE ECG NO PREVIOUS ECG AVAILABLE FOR COMPARISON Electronically Signed On 06-19-2023 14:10:58 LINOTYPER by Wagner Chaidez D.O.
[2023-06-19 14:30] LABS: Amylase 80 U/L (30-110)
[2023-06-19 15:01] LABS: Prothrombin Time 13.8 Seconds (11.1-14.7)
[2023-06-19 15:03] LABS: Partial Thromboplastin Time 28.1 SECONDS (22.3-36.8)
== END 2023-06-19 13:39 | disposition home or self-care (01) ==
LOC: ANHSURGERY 13:42
PROVIDERS: Anesthesiology; PCP Family Medicine; Visit Provider Surgery
DX: Z01.818 Encounter for other preprocedural examination (principal); K76.0 Fatty (change of) liver, not elsewhere classified; Z72.0 Tobacco use; K82.8 Other specified diseases of gallbladder; I45.19 Other right bundle-branch block
CPT/HCPCS: 36415; 82150; 85610; 85730; 86850; 86900; 86901; 93005

== ENCOUNTER 2023-06-21 00:36 | Day surgery (SDC) | payer BC, OTHER, MEDICAID, SELFPAY ==
[2023-06-16 10:31] VITALS: BMI 23.3
--- NOTE | 2023-06-16 10:37 | PC.NURSE ---
Report to the Outpatient Waiting Room, entrance under the green pavilion located off [facility], at time 7:30 on date 06/21/23. Planned Procedure Time: 9:30. Time changes happen often and if your time is changed the preop area will call you the afternoon before. - You and your visitor will be asked to self-screen and do not enter if you have any COVID symptoms. - A mask is optional within the hospital at this time. Patients may have clear liquids (water, carbonated beverages, clear teas, apple juice) until 3 hours prior to surgery (6:30) with a maximum of 20 ounces. - No food from midnight until time of surgery Take the following medications with a SIP of water the morning of surgery: INHALERS, PAIN PILL IF NEEDED DO NOT STOP ANY OF YOUR OTHER PRESCRIPTION MEDICATIONS PRIOR TO SURGERY ?EXCEPT THE FOLLOWING Medications to discontinue per physician: N/A Date to take last dose: N/A Please no make-up, nail croatian, hairspray, perfume, deodorant, or body powder the day of surgery. No jewelry (including any body piercings) or valuables the day of surgery, leave them at home. Please take a shower or bath the night before, or the morning of, surgery with an antibacterial soap. Wear comfortable, loose fitting clothing. - Jewelry must be removed prior to entering the operating room. Rings and piercings that are not removed may be cut off. - The hospital will not accept responsibility for valuables. - Please leave all valuables, including medications, at home the day of surgery. If you are going home after surgery, a licensed river driver must drive you home. - NO public transportation without another adult if you receive anesthesia. - We recommend that an adult stay with you for 24 hours following discharge. - We also recommend that you do not drive, make important decision, drink alcoholic beverages, or take any drugs that were not prescribed by your health care provider for at least 24 hours after your discharge time. Follow any additional instructions given to you from your surgeon. If you or anyone in your household have experienced Covid symptoms in the past week, please notify your surgeon or the nurse liaison at the phone number below for possible testing. Telephone instructions given to PT - FIDELIA GAY and asked if any additional questions and then verbalized understanding. Patient advised to call surgeon office or pre surgery nurse liaison [phone] if any additional questions.
[2023-06-21] VITALS (11 sets, daily range): BP systolic 102–149; BP diastolic 48–70; PULSE 73–102; RESP 14–20; TEMP 36.3–37; O2SAT 94–100
[2023-06-21] MEDS: INDOCYANINE GREEN 25 MG VIAL WITH DILUENT 3.75 MG IV PUSH (08:30)
[2023-06-21] MEDS: ACETAMINOPHEN 500 MG TABLET 1000 MG PO (08:30)
[2023-06-21] MEDS: KETOROLAC 15 MG/ML VIAL (*BKC) IV PUSH (08:30)
--- NOTE | 2023-06-21 08:35 | WPDANESEPPF ---
Anes - Initial Pre Proc Eval Procedure: Operation Date: 06/21/23 09:30 Proposed Procedures p Laparoscopic Cholecystectomy Davinci Assisted - Adolph Montiel DO Date/Time: 06/21/23 08:35 Surgeon: Adolph Montiel DO Pre Op Diagnosis: biliary dyskinesia Patient Data Age: 63 Gender: F Height: 1.6 m Weight: 59.9 kg Allergies Allergy/AdvReac Type Severity Reaction Status Date / Time codeine AdvReac Unknown Nausea and Verified 06/21/23 08:07 Vomiting Home Medications Medication Instructions Recorded Confirmed Type albuterol sulfate 90 mcg/actuation 2 puff inhalation QID PRN 04/17/23 06/16/23 Rx aerosol inhaler (Ventolin HFA) shortness of breath or wheezing #1 g omeprazole 40 mg capsule,delayed 40 mg PO DAILY #90 caps 04/17/23 06/16/23 Rx release fluticasone fur. 100 mcg-umeclid 1 inh inhalation DAILY #60 ea 05/12/23 06/16/23 Rx 62.5 mcg-vilant 25 mcg inhalat.powder (Trelegy Ellipta) dicyclomine 20 mg tablet 20 mg PO BID #30 tabs 06/05/23 06/16/23 Rx hydrocodone 5 mg-acetaminophen 325 1 tablet PO Q4H PRN pain #20 tabs 06/16/23 06/16/23 Rx mg tablet Patient hx anesthesia problems: none Family hx anesthesia problems: none Results Review: All pre-operative results and documents have been reviewed as part of the pre-operative evaluation. [facility] Past Medical History Medical History Abdominal pain Acute pharyngitis, unspecified (02/28/18) Adenomatous colon polyp Anemia Arm numbness left Asthma Bloating BMI 23.0-23.9, adult BMI 24.0-24.9, adult BMI 25.0-25.9,adult Bronchitis COPD (chronic obstructive pulmonary disease) DM (diabetes mellitus) Early satiety Elevated blood pressure reading Elevated liver enzymes Encounter for gynecological examination (general) (routine) without abnormal findings Encounter for screening for lipoid disorders Encounter for screening for malignant neoplasm of colon Encounter for screening for respiratory tuberculosis (11/06/17) Family history of colon cancer in mother Fatty liver Helicobacter pylori (H. pylori) History of angina Irritable bowel syndrome with constipation Lung nodule Melena Mixed hyperlipidemia Neck pain Nicotine dependence, unspecified, uncomplicated Other abnormal glucose Peptic ulcer Pneumonia Prediabetes Routine physical examination Screening for malignant neoplasm of breast Screening for thyroid disorder Strep pharyngitis Tobacco abuse Tobacco use UTI (urinary tract infection) Surgical History Surgical History H/O colonoscopy History of delivery x2 History of dilation and curettage x3 History of tonsillectomy and adenoidectomy Hx of tubal ligation Family History Family History Mother Hypertension Carcinoma of colon Sibling Family history of lung cancer Diabetes mellitus Heart disease Father Sibling No problems noted. 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
--- NOTE | 2023-06-21 09:02 | WPDHPUPDATE1 ---
History and Physical Update Update Date/Time: 06/21/23 09:02 History and Physical has been reviewed, including an updated exam of the patient. There are NO changes in the patient's condition. Risks, benefits, and alternatives have been discussed and questions answered. Patient agrees to proceed with procedure.
[2023-06-21] MEDS: ceFAZolin 2 GM/D5W 50 ML 2 GM/50 ML BAG IVPB (09:39)
[2023-06-21] MEDS: BUPIVACAINE/EPINEPHRINE 0.5% 10 ML VIAL 30 ML INFILTRATE (10:18)
[2023-06-21] MEDS: LACTATED RINGERS 1,000 ML 30 ML IV CONT ×2 (10:40)
--- NOTE | 2023-06-21 10:40 | W.PM.PROC2 ---
Procedure Note - Detailed Date of Procedure 06/21/23 Pre-op Diagnosis biliary dyskinesia Post-op Diagnosis Same Procedure Performed 1. Laparoscopic cholecystectomy with cholangiography, da Diana assisted 2. Interpretation of cholangiography Surgeon Adolph Montiel, Anesthesia General and Local (0.5% bupivacaine) Indications This is a 63-year-old woman who presented with right upper quadrant pain for the past several weeks. Her pain had been progressively worsening and she went to the emergency department. CT and ultrasound were normal. She was referred to her PCP who then followed with a HIDA scan. This showed decreased gallbladder ejection fraction. Patient was then referred for surgical evaluation. Discussions were made with the patient about treatment options and decision was made to proceed with robotic assisted laparoscopic cholecystectomy. Findings Laparoscopic cholecystectomy was performed. Indocyanine green was given intravenously preop to allow for evaluation of the biliary ducts. Once inspecting the abdomen laparoscopically and robotically, I then used near infrared fluorescence imaging to identify the cystic duct and common bile duct. This allowed me to carefully dissect within the critical window without being near the common bile duct. The cystic duct was carefully dissected free and no other biliary structures were noted anywhere near it. The gallbladder had a few pericholecystic adhesions but otherwise appeared normal. The gallbladder was removed and sent to the lab for pathology. Description of Procedure Procedure as well as risks, benefits, and alternatives were discussed with the patient. Written consent was obtained and placed in chart prior to procedure. 1.5 mL of indocyanine green was given intravenously in preop. Patient was brought back to surgical suite. She was placed supine on operating table. Time-out was done to confirm patient and procedure. She was then intubated by the anesthesia department. Her abdomen was then prepped and draped in sterile fashion using chlorhexidine prep. 0.5% bupivacaine was infiltrated locally at the site of each port placement. An 8 mm incision was made just superior to the umbilicus and a 5 mm Optiview trocar was then advanced through the abdominal layers under direct visualization. Once inside the abdominal cavity, carbon dioxide insufflation was used to create a pneumoperitoneum. The camera was inserted and the abdomen was inspected. No mediated abnormalities were noted. The patient was placed in 10? reverse Trendelenburg position and rotated 10? to the left. Two 8 mm incisions were made in the right lateral abdomen and 2 8 mm trocars were inserted under direct visualization. An 8 mm incision was made in the left lateral abdomen and a 8 mm trocar was inserted under direct visualization. The 5 mm Optiview trocar was then removed and another 8 mm trocar was inserted in its place. The robotic arms were then brought up to the patient's bedside and secured to each port. The camera and instruments were inserted. I then moved over to the robotic consult to take control of the camera and instruments. The gallbladder was grasped at the fundus and retracted cephalad. The infundibulum of the gallbladder was then grasped and retracted laterally. Hook electrocautery was then used to carefully dissect around the neck of the gallbladder. The cystic duct was identified and a window was created around it using hook electrocautery. The cystic artery was also identified and a window was created behind it using hook electrocautery. Critical view of safety was identified visualizing the cystic duct running directly into the neck of the gallbladder and the cystic artery running directly into the wall the gallbladder. The camera view was switched to firefly mode and the indocyanine green within the gallbladder and cystic duct was clearly visualized. No other structures were noted running into this re
[2023-06-21] MEDS: fentaNYL CITRATE INJ (*CRX) 100 MCG/2 ML VIAL 25 MCG IV PUSH ×8 (11:05→11:31)
[2023-06-21] MEDS: HYDROmorphone HCL INJ (*CRX) 1 MG/ML SYR 0.5 MG IV PUSH ×4 (11:35→11:50)
[2023-06-21] MEDS: ONDANSETRON INJ 4 MG/2 ML VIAL IV PUSH (12:21)
[2023-06-21] MEDS: oxyCODONE HCL (*CRX) 5 MG TAB IR PO (12:53)
== END 2023-06-21 13:10 | disposition home or self-care (01) ==
PROVIDERS: PCP Family Medicine; Visit Provider Surgery
PROC: 0FT44ZZ Resection of Gallbladder, Percutaneous Endoscopic Approach (ICD-10-PCS; CPT 47562; principal; 2023-06-21 09:30)
DX: K82.8 Other specified diseases of gallbladder (principal); J44.9 Chronic obstructive pulmonary disease, unspecified; E11.9 Type 2 diabetes mellitus without complications; Z79.51 Long term (current) use of inhaled steroids; F17.210 Nicotine dependence, cigarettes, uncomplicated
CPT/HCPCS: 47563; 74300; 88304; A9270; J0690; J1100; J1170; J1885; J2250; J2405; J3010; J7120